=== PATIENT | male | born 1935 | race Caucasian/White ===

== ENCOUNTER → 2018-07-20 08:52 | Outpatient (CLI) | payer MEDICARE, SELFPAY ==
[2018-07-20 10:22] LABS: Add Manual Diff / Slide Review NO; Basophils Percent Auto 1.1 % (0-2); Eosinophils Percent Auto 3.4 % (2-4); Hematocrit 47.7 % (41-53); Hemoglobin 16.1 g/dL (13.5-17.5); Lymphocytes Percent Auto 32.5 % (25-40); Mean Corpuscular HGB Conc 33.8 % (30-36); Mean Corpuscular Hemoglobin 31.1 PG (26-34); Mean Corpuscular Volume 91.9 fL (80-100); Monocytes Percent Auto 11.7 % (3-14); Neutrophils Absolute Auto 2800 /uL (3000-5900); Neutrophils Percent Auto 51.3 % (50-75); Platelet Count 200 X10^3/uL (150-400); Red Cell Distribution Width 13.3 % (11.6-14.8); White Blood Cell Count 5.4 X10^3/uL (4.5-11.0)
[2018-07-20 12:35] LABS: Alanine Aminotransferase 38 IU/L (21-72); Albumin 3.9 g/dL (3.5-5.0); Albumin Globulin Ratio 1.4 (1.0-2.8); Alkaline Phosphatase 75 U/L (38-126); Aspartate Aminotransferase 49 IU/L (17-59); Bilirubin Total 0.9 mg/dL (0.2-1.3); Blood Urea Nitrogen 13 mg/dL (9-20); Calcium 9.4 mg/dL (8.4-10.2); Carbon Dioxide 31 mmol/L (22-32); Chloride 108 mmol/L (98-107); Cholesterol 168 mg/dL (140-199); Globulin 2.8 g/dL (1.7-4.1); Glucose 86 mg/dL (80-110); HDL Cholesterol 47 mg/dL (40-60); HEMOLYSIS < 15 (0-50); LDL Cholesterol Calculated 106 mg/dL (<100); Potassium 4.1 mmol/L (3.4-5.1); Sodium 146 mmol/L (137-145); Total Protein 6.7 g/dL (6.3-8.2); Triglycerides 73 mg/dL (35-150)
[2018-07-20 13:06] LABS: Prostate Specific Antigen < 0.064 ng/mL (0.10-4.00)
== END ==
PROVIDERS: PCP Internal Medicine; Visit Provider Internal Medicine
DX: Z00.00 Encounter for general adult medical examination without abnormal findings (principal); C61 Malignant neoplasm of prostate; N18.9 Chronic kidney disease, unspecified
CPT/HCPCS: 36415; 80053; 80061; 84153; 85025

== ENCOUNTER → 2019-08-02 11:25 | Outpatient (CLI) | payer MEDICARE, SELFPAY ==
[2019-08-02 12:20] LABS: Add Manual Diff / Slide Review NO; Basophils Absolute Auto 100 /uL (0-100); Basophils Percent Auto 1.1 % (0-2); Eosinophils Absolute Auto 200 /uL (0-450); Eosinophils Percent Auto 2.8 % (2-4); Hematocrit 43.8 % (41-53); Hemoglobin 14.6 g/dL (13.5-17.5); Lymphocytes Absolute Auto 1400 /uL (1100-4500); Lymphocytes Percent Auto 24.5 % (25-40); Mean Corpuscular HGB Conc 33.5 % (30-36); Mean Corpuscular Hemoglobin 30.9 PG (26-34); Mean Corpuscular Volume 92.5 fL (80-100); Monocytes Absolute Auto 700 /uL (0-900); Monocytes Percent Auto 12.7 % (3-14); Neutrophils Absolute Auto 3300 /uL (1500-7000); Neutrophils Percent Auto 58.9 % (50-75); Platelet Count 209 X10^3/uL (150-400); Red Blood Cell Count 4.73 X10^6/uL (4.5-5.9); Red Cell Distribution Width 13.9 % (11.6-14.8); White Blood Cell Count 5.6 X10^3/uL (4.5-11.0)
[2019-08-02 12:56] LABS: BUN Creatinine Ratio 12.1 (6-22); Blood Urea Nitrogen 17 mg/dL (9-20); Calcium 9.9 mg/dL (8.4-10.2); Carbon Dioxide 25 mmol/L (22-32); Chloride 106 mmol/L (98-107); Estimated Glomerular Filt Rate 48.5 mL/min (>60); Glucose 94 mg/dL (80-110); HEMOLYSIS < 15 (0-50); Potassium 4.5 mmol/L (3.4-5.1); Sodium 140 mmol/L (137-145)
[2019-08-02 13:27] LABS: Prostate Specific Antigen < 0.064 ng/mL (0.10-4.00)
== END ==
PROVIDERS: PCP Internal Medicine; Visit Provider Internal Medicine
DX: C61 Malignant neoplasm of prostate (principal); K21.0 Gastro-esophageal reflux disease with esophagitis; N18.9 Chronic kidney disease, unspecified
CPT/HCPCS: 36415; 80048; 84153; 85025

== ENCOUNTER → 2020-10-06 13:29 | Outpatient (CLI) | payer MEDICARE, SELFPAY ==
[2020-10-06 14:37] LABS: COVID19 -Nasal RAPID Negative (Negative)
== END ==
PROVIDERS: PCP Internal Medicine; Visit Provider Physician Assistant
DX: Z11.59 Encounter for screening for other viral diseases (principal)
CPT/HCPCS: 87635

== ENCOUNTER 2020-10-08 10:21 | Day surgery (SDC) | payer MEDICARE, SELFPAY ==
--- NOTE | 2020-10-07 12:58 | PM.PREOP ---
Pre-operative Note COVID-19 COVID-19 status: Negative Interval Note History & Physical reviewed/Exam performed by Physician: Yes Changes to H&P: No
--- NOTE | 2020-10-08 08:06 | PM.OP.1 ---
Operative Date/Time/Diagnoses Date of procedure: 10/08/20 Time of procedure: 11:45 Procedure & Clinicians Procedure: Preoperative diagnoses: 1. Left nuclear sclerotic and cortical cataract. 2. Previous shingles Postoperative diagnoses: 1. Cataract removed by phacoemulsification with placement of posterior chamber intraocular lens. Procedure: Phacoemulsification with posterior chamber intraocular lens implant Surgeon: Kari Ruelas MD Complications: None Specimen: None Implant: [id number]+18.5 Blood loss: None Anesthesia: Retrobulbar with monitored standby Description of procedure: Patient presents with a complaint of decreased vision due to cataract which is affecting activities of daily living. He has had successful surgery in his right eye previously. The patient wants surgery to improve vision. The patient was taken to the operating room and given IV sedation. A retrobulbar block consisting of 6 cc of 2% xylocaine without epinephrine mixed half and half with 0.5% Marcaine with 1 cc of hyaluronidase added is placed between the medial and lateral 1/3 of the inferior orbital rim. The eye is manually massaged for 30 sec, prepped using Betadine solution, and draped in the usual sterile fashion. Temporal approach was made, a 1 mm side-port incision was made 90? from the proposed clear corneal incision position. Phenylephrine 1.5% mixed with 1% xylocaine 0.2 cc was placed into the anterior chamber. Viscoat followed by Santiago was then placed. A 2.6 mm clear incision with a 2.6 mm blade was placed. A 360 degree capsulorrhexis style capsulotomy was then performed with a cystitome needle on a Healon. Hydrodelineation and hydrodissection were performed. The phacoemulsification unit is introduced, and sculpting notice used to groove the central lens. It is then removed in chopping mode. Epi nucleus is removed with epinuclear mode and irrigation aspiration was used to remove the peripheral cortex. The posterior capsule is polished. The intraocular lens is selected, inspected, power confirmed, and placed in the posterior chamber. The wound was stromally hydrated and tested for leaks, there was none and it was left sutureless. Vigamox 0.1 cc was placed into the anterior chamber. Kenalog 0.2 cc was placed in the superior subconjunctival space. A drop of antibiotic and was placed and the eye was patched and shielded. The patient was stable and returned to the recovery room in excellent condition. Dictated by: Kari Ruelas MD Copy to: [facility] Same procedure as scheduled: Yes
[2020-10-08 10:47] VITALS: BP 119/66; PULSE 70; RESP 16; TEMP 36.1; O2SAT 100; BMI 24.3
[2020-10-08] MEDS: CATARACT EYE COMPOUND (10 DROPS/SYRINGE) 3 DROPS EYE-OP (11:06)
[2020-10-08] MEDS: PROPARACAINE 0.5% OPHTH SOL 2 DROPS EYE-OP (11:09)
[2020-10-08] MEDS: LIDOCAINE 2% 4 ML, BUPIVACAINE 0.5% (PF) 4 ML, HYALURONIDASE 150 UNIT INJ (11:44)
[2020-10-08] MEDS: ERYTHROMYCIN OPHTH 1 GM OINT 1 APPLIC EYE-LEFT (11:58)
[2020-10-08] MEDS: CHONDROIDTIN/SOD HYALURONATE 1.05 ML SYRINGE INTRAOCULA (11:58)
[2020-10-08] MEDS: HYALURONATE SODIUM 10 MG/ML SYRINGE INJ (11:59)
[2020-10-08] MEDS: MOXIFLOXACIN INJ 5 MG/ML VIAL EYE-OP (11:59)
[2020-10-08] MEDS: TRIAMCINOLONE 50 MG/5 ML VIAL INJ (11:59)
[2020-10-08] MEDS: PHENYLEPHRINE/LIDOCAINE VIAL (OR) 0.2 ML EYE-OP (11:59)
[2020-10-08] MEDS: BALANCED SALT IRRIG SOLN NO.2 500 ML, EPINEPHrine 1 MG IRR (12:00)
[2020-10-08 12:26] VITALS: BP 109/73; PULSE 68; RESP 14; TEMP 36.3; O2SAT 98
[2020-10-08 12:30] VITALS: BP 110/60; PULSE 68; RESP 16; TEMP 36.3; O2SAT 98
--- NOTE | 2020-10-08 14:36 | SUR.PHASEII ---
Originally spoke to , Flower, at 1236. She stated that she walked down to the [employer]. Pt's discharge delayed until 1312 due to above.
== END 2020-10-08 13:12 | disposition home or self-care (01) ==
LOC: OR 10:26
PROVIDERS: PCP Family Medicine; Referring Provider Ophthalmology; Visit Provider Ophthalmology
PROC: (CPT 66984; principal; 2020-10-08 11:45)
DX: H25.812 Combined forms of age-related cataract, left eye (principal)
CPT/HCPCS: 66984; J0171; J2250; J3010; J3301; J3470

== ENCOUNTER → 2021-02-24 15:14 | Outpatient (CLI) | payer MEDICARE, SELFPAY ==
[2021-02-24 16:04] LABS: COVID19 -Nasal RAPID Negative (Negative)
== END ==
PROVIDERS: PCP Family Medicine; Visit Provider Specialist
DX: Z20.822 Contact with and (suspected) exposure to COVID-19 (principal)
CPT/HCPCS: 87635; C9803

== ENCOUNTER 2021-02-25 14:22 | Day surgery (SDC) | payer MEDICARE, SELFPAY ==
[2021-02-25] VITALS (7 sets, daily range): BP systolic 113–124; BP diastolic 65–76; PULSE 63–96; RESP 14–16; TEMP 36.2–37.1; O2SAT 95–98; BMI 23.3
[2021-02-25] MEDS: LACTATED RINGERS 1,000 ML 100 ML IV (15:03)
--- NOTE | 2021-02-25 16:16 | PM.PREOP ---
Pre-operative Note COVID-19 COVID-19 status: Negative Result date/Date tested (Pos, Neg/Pending): 02/24/21 Interval Note History & Physical reviewed/Exam performed by Physician: Yes Changes to H&P: No H&P completed within 30 days and has changed as indicated here:: Discussed the risks once again of the operation with him. He had no questions. He is little sensitive to narcotics but he is able to take oxycodone/Percocet.
[2021-02-25] MEDS: CEFAZOLIN 2 GM/100 ML FROZ.PIGGY IV (16:34)
--- NOTE | 2021-02-25 16:58 | SUR.OPER ---
Supine on padded OR bed, head on pillow, arms secured on padded arm boards at <90 degrees abduction, legs uncrossed, safety belt at thigh, tape over blanket over lower legs.
[2021-02-25] MEDS: BUPIVACAINE 0.5% (PF) VIAL 30 ML INJ (17:02)
[2021-02-25] MEDS: OXYCODONE/ACETAMINOPHEN 5/325 TABLET 1 TAB PO (18:13)
--- NOTE | 2021-02-25 18:21 | PM.OP.1 ---
Operative Date/Time/Diagnoses Date of procedure: 02/25/21 Time of procedure: 18:00 Pre-op diagnosis: Left inguinal hernia reducible Post-op diagnosis: same (Direct hernia) Procedure & Clinicians Procedure: Repair with plug and patch technique Same procedure as scheduled: Yes Indications: Symptomatic hernia Surgeon: Jerardo Bhat Click Yes if Unassisted: Yes Anesthesia Type: General Operative Notes Findings: Direct hernia. Greatly attenuated floor. Closure Type: primary Specimen(s): none sent Prosthetic devices, grafts, tissues, transplants, or devices: Medium plug Estimated Blood Loss (mL): 5 Blood products transfused: none Procedure in detail: The patient was placed supine on the operating room table and underwent general LMA anesthesia. He was prepped and draped in the usual fashion. A transverse incision was made overlying the left internal ring and carried down to the level of the external oblique. The external oblique was opened parallel with its fibers through the external ring. The cord structures were elevated. The cremaster was opened proximally and search made for an indirect sac. There was a lipoma of the cord that was dissected from surrounding structures. There was a lot of fat within the cord itself interdigitated with the vessels which I left alone. I did not identify an indirect sac. The weakness created in this area and from preperitoneal fat projecting into the cord structures was treat him medium plug in this defect created and tacking it into place with interrupted Ethibond sutures. I then cremaster with 3-0 Vicryl. The floor was very lax. The area at the internal ring really did not have and I chose to recreate 1 by suturing from the shelving edge of the transversalis to the ileopubic laterally. This closed the floor with stronger tissue however on this and so I did not make a relaxing says incision in the posterior lamella of the anterior rectus sheath as I normally would. A patch was placed across the floor and tacked at the pubic tubercle, the posterior lamella of the anterior rectus sheath, the ilioinguinal ligament, and superior lateral to the cord. The opening was modified as necessary to prevent tight constriction of the cord. Sutures of 0 Ethibond were used to secure the mesh. The external oblique was closed with a running 3 0 Vicryl. The subcu was closed with interrupted 3 0 Vicryl. The skin was closed with a running 4 0 Vicryl subcuticular stitch and Steri-Strips. Dressing was applied, the patient was awakened, and the patient was taken to the recovery area in good condition. Complications: none Post-operative Condition: stable Disposition: PACU
== END 2021-02-25 19:05 | disposition home or self-care (01) ==
PROVIDERS: PCP Family Medicine; Referring Provider Specialist; Visit Provider Specialist
PROC: (CPT 49505; principal; 2021-02-25 15:45)
DX: K40.90 Unilateral inguinal hernia, without obstruction or gangrene, not specified as recurrent (principal); Z85.46 Personal history of malignant neoplasm of prostate; N18.9 Chronic kidney disease, unspecified; G62.9 Polyneuropathy, unspecified; I34.1 Nonrheumatic mitral (valve) prolapse; D17.6 Benign lipomatous neoplasm of spermatic cord
CPT/HCPCS: 49505; 82962; C1781; J0690; J1100; J1885; J2405; J2704; J3010